=== PATIENT | male | born 1975 | race Caucasian/White ===

== ENCOUNTER 2021-11-11 11:40 | Inpatient (IN) | payer BC ==
[2021-11-11] MEDS ORDERED: MAGNESIUM HYDROX 2400MG/30ML ORAL SUSPENSION 30 ML CUP PO PRN (12:04)
[2021-11-11] MEDS ORDERED: LOPERAMIDE HCL 2 MG CAPSULE PO PRN (12:04)
[2021-11-11] MEDS ORDERED: ONDANSETRON *ODT* 4 MG TABLET SL PRN (12:04)
[2021-11-11] MEDS ORDERED: ACETAMINOPHEN 325 MG TABLET (FP) PO PRN (12:04)
[2021-11-11] MEDS ORDERED: NICOTINE 10 MG CARTRIDGE (INHALER) IH PRN (12:04)
[2021-11-11] MEDS ORDERED: DICYCLOMINE HCL 10 MG CAPSULE PO PRN (12:04)
[2021-11-11] MEDS ORDERED: MAGNESIUM CITRATE 300 ML BOTTLE PO PRN (12:04)
[2021-11-11] MEDS ORDERED: MENTHOL/PHENOL 1 EACH UD MM PRN (12:04)
[2021-11-11] MEDS ORDERED: BISMUTH SUBSALICYLATE 524 MG/30 ML PO PRN (12:04)
[2021-11-11 13:19] VITALS: BMI 18.8
[2021-11-11] MEDS: PRENATAL VITAMINS W/ FOLIC ACID TABLET (FP) PO SCH (14:11)
[2021-11-11] MEDS: hydrOXYzine PAMOATE 25 MG CAPSULE (FP) PO SCH ×3 (14:11→22:26)
[2021-11-11 15:18] LABS: HEMATOCRIT 35.7 % (35.4-49); HEMOGLOBIN 12.2 GM/dL (11.7-16.9); MCH 27.5 pg (25.7-33.7); MCHC 34.1 g/dl (32.0-35.9); MEAN CELL VOLUME 80.5 fl (80-96); MEAN PLT VOLUME 7.3 fl (7.5-11.1); PLATELET COUNT 263 10^3/uL (134-434); RBC 4.43 M/mm3 (4.00-5.60); RDW 15.3 % (11.9-15.9); WHITE BLOOD COUNT 6.1 K/mm3 (4.0-10.0)
[2021-11-11 15:28] LABS: CALCIUM 8.9 mg/dL (8.5-10.1)
[2021-11-11 15:29] LABS: ALBUMIN 3.4 g/dl (3.4-5.0); BLOOD UREA NITROGEN 21.6 mg/dL (7-18)
[2021-11-11 15:32] LABS: CREATININE 0.8 mg/dL (0.55-1.3)
[2021-11-11 15:33] LABS: BILIRUBIN,TOTAL 0.6 mg/dL (0.2-1)
[2021-11-11 15:34] LABS: TOT PROT 7.8 g/dl (6.4-8.2)
[2021-11-11] MEDS ORDERED: MELATONIN 5 MG TABLETS PO SCH (22:00)
[2021-11-11] MEDS: THIAMINE HCL 100 MG TABLET (FP) PO SCH (22:26)
[2021-11-12] MEDS: hydrOXYzine PAMOATE 25 MG CAPSULE (FP) PO SCH ×5 (06:04→22:28)
[2021-11-12] MEDS: METHOCARBAMOL 500 MG TABLET PO PRN (07:23)
[2021-11-12] MEDS ORDERED: methaDONE HCL 40 MG DISPERSABLE TABLET ONE (09:19)
[2021-11-12] MEDS ORDERED: methaDONE HCL 10 MG TABLET ONE (09:19)
[2021-11-12] MEDS ORDERED: diazePAM 5 MG TABLET PO PRN (09:41)
[2021-11-12] MEDS ORDERED: methaDONE HCL 10 MG TABLET PO ONE (10:00)
[2021-11-12] MEDS: PRENATAL VITAMINS W/ FOLIC ACID TABLET (FP) PO SCH (10:46)
[2021-11-12] MEDS: diazePAM 5 MG TABLET PO SCH ×3 (10:47→22:27)
[2021-11-12] MEDS: MAG HYDROX/AL HYDROX/SIMETH 30 ML UNIT-DOSE CUP PO PRN (10:48)
[2021-11-12] MEDS: ACETAMINOPHEN 325 MG TABLET (FP) PO PRN (10:48)
[2021-11-12] MEDS: THIAMINE HCL 100 MG TABLET (FP) PO SCH (22:27)
[2021-11-13] MEDS ORDERED: methaDONE HCL 40 MG DISPERSABLE TABLET ONE (04:16)
[2021-11-13] MEDS ORDERED: methaDONE HCL 10 MG TABLET ONE (04:16)
[2021-11-13] MEDS: diazePAM 5 MG TABLET PO SCH ×4 (05:02→22:45)
[2021-11-13] MEDS: hydrOXYzine PAMOATE 25 MG CAPSULE (FP) PO SCH ×5 (05:02→22:44)
[2021-11-13] MEDS: ACETAMINOPHEN 325 MG TABLET (FP) PO PRN ×2 (05:06→22:46)
[2021-11-13] MEDS ORDERED: methaDONE HCL 10 MG TABLET PO SCH (06:00)
[2021-11-13] MEDS: METHOCARBAMOL 500 MG TABLET PO PRN ×2 (08:37→22:44)
[2021-11-13] MEDS: PRENATAL VITAMINS W/ FOLIC ACID TABLET (FP) PO SCH (10:20)
[2021-11-13] MEDS: MAG HYDROX/AL HYDROX/SIMETH 30 ML UNIT-DOSE CUP PO PRN (10:24)
[2021-11-13] MEDS: THIAMINE HCL 100 MG TABLET (FP) PO SCH (22:44)
[2021-11-13] MEDS: SUVOREXANT 10 MG TABLET PO PRN (22:48)
[2021-11-14 00:07] LABS: SARS-CoV-2 NAA Not Detected (Not Detected)
[2021-11-14] MEDS ORDERED: methaDONE HCL 40 MG DISPERSABLE TABLET ONE (04:16)
[2021-11-14] MEDS ORDERED: methaDONE HCL 10 MG TABLET ONE (04:16)
[2021-11-14] MEDS: diazePAM 5 MG TABLET PO SCH ×3 (05:06→22:06)
[2021-11-14] MEDS: IBUPROFEN 400 MG TABLET (FP) PO PRN ×2 (05:08→22:09)
[2021-11-14] MEDS: METHOCARBAMOL 500 MG TABLET PO PRN ×3 (05:08→18:05)
[2021-11-14] MEDS: hydrOXYzine PAMOATE 25 MG CAPSULE (FP) PO SCH ×5 (05:09→22:06)
[2021-11-14] MEDS: PRENATAL VITAMINS W/ FOLIC ACID TABLET (FP) PO SCH (10:10)
[2021-11-14] MEDS: ACETAMINOPHEN 325 MG TABLET (FP) PO PRN (10:21)
[2021-11-14] MEDS: MAG HYDROX/AL HYDROX/SIMETH 30 ML UNIT-DOSE CUP PO PRN (18:06)
[2021-11-14] MEDS: THIAMINE HCL 100 MG TABLET (FP) PO SCH (22:06)
[2021-11-14] MEDS: SUVOREXANT 10 MG TABLET PO PRN (22:08)
[2021-11-15] MEDS ORDERED: methaDONE HCL 10 MG TABLET ONE (04:38)
[2021-11-15] MEDS ORDERED: methaDONE HCL 40 MG DISPERSABLE TABLET ONE (04:39)
[2021-11-15] MEDS: hydrOXYzine PAMOATE 25 MG CAPSULE (FP) PO SCH ×5 (05:16→22:15)
[2021-11-15] MEDS: diazePAM 5 MG TABLET PO SCH ×2 (05:16→17:47)
[2021-11-15] MEDS: METHOCARBAMOL 500 MG TABLET PO PRN ×2 (05:17→17:49)
[2021-11-15] MEDS: PRENATAL VITAMINS W/ FOLIC ACID TABLET (FP) PO SCH (10:09)
[2021-11-15] MEDS: ACETAMINOPHEN 325 MG TABLET (FP) PO PRN (10:10)
[2021-11-15] MEDS: MAG HYDROX/AL HYDROX/SIMETH 30 ML UNIT-DOSE CUP PO PRN (14:00)
[2021-11-15] MEDS: SUVOREXANT 10 MG TABLET PO PRN (21:55)
[2021-11-15] MEDS: THIAMINE HCL 100 MG TABLET (FP) PO SCH (22:15)
[2021-11-16] MEDS ORDERED: methaDONE HCL 10 MG TABLET ONE (04:58)
[2021-11-16] MEDS ORDERED: methaDONE HCL 40 MG DISPERSABLE TABLET ONE (04:58)
[2021-11-16] MEDS: hydrOXYzine PAMOATE 25 MG CAPSULE (FP) PO SCH (05:19)
[2021-11-16] MEDS ORDERED: diazePAM 5 MG TABLET PO ONE (06:00)
[2021-11-16 09:18] VITALS: BP 100/63; PULSE 97; TEMP 98.3
== END 2021-11-16 09:08 | disposition home or self-care (01) | DRG 773 ==
LOC: YASAS 11:40 → Y6N 13:36
PROVIDERS: ADMIT Allergy & Immunology; ATTEND Allergy & Immunology
PROC: HZ2ZZZZ Detoxification Services for Substance Abuse Treatment (ICD-10-PCS; principal; 2021-11-11)
DX: F10.230 Alcohol dependence with withdrawal, uncomplicated (principal); F11.20 Opioid dependence, uncomplicated; F14.20 Cocaine dependence, uncomplicated; F12.20 Cannabis dependence, uncomplicated; F17.210 Nicotine dependence, cigarettes, uncomplicated; F19.282 Other psychoactive substance dependence with psychoactive substance-induced sleep disorder; F19.24 Other psychoactive substance dependence with psychoactive substance-induced mood disorder; F41.9 Anxiety disorder, unspecified; J45.909 Unspecified asthma, uncomplicated
CPT/HCPCS: 36415; 80053; 82962; 84520; 85027; 86780; C9803-CS; U0003; U0005

== ENCOUNTER 2024-01-30 12:29 | Inpatient (IN) | payer BC ==
[2024-01-30 14:06] VITALS: BMI 18.2
[2024-01-30] MEDS ORDERED: NALOXONE (NARCAN) HCL 4 MG/0.1 ML SPRAY NS PRN (14:31)
[2024-01-30] MEDS ORDERED: BENZONATATE 200 MG CAPSULE PO PRN (14:31)
[2024-01-30] MEDS ORDERED: guaiFENesin 600 MG TABLET.ER (FP) PO PRN (14:31)
[2024-01-30] MEDS ORDERED: NALOXONE HCL 0.4 MG/ML VIAL IM PRN (14:31)
[2024-01-30] MEDS ORDERED: MAGNESIUM HYDROX 2400MG/30ML ORAL SUSPENSION 30 ML CUP PO PRN (14:31)
[2024-01-30] MEDS ORDERED: ACETAMINOPHEN 325 MG TABLET (FP) PO PRN (14:31)
[2024-01-30] MEDS ORDERED: P-EPHED 60MG/TRIPROLIDI 2.5MG TABLET PO PRN (14:31)
[2024-01-30] MEDS ORDERED: BENZOCAINE/MENTHOL (CHLORASEPTIC ) LOZENGE MM PRN (14:31)
[2024-01-30] MEDS ORDERED: DOCUSATE SODIUM 100 MG CAPSULE (FP) PO PRN (14:31)
[2024-01-30] MEDS ORDERED: NICOTINE POLACRILEX 2 MG LOZENGE BC PRN (14:31)
[2024-01-30] MEDS ORDERED: POLYETHYLENE GLYCOL (HEALTHYLAX) 3350 17 GM PACKET PO PRN (14:31)
[2024-01-30] MEDS ORDERED: LOPERAMIDE HCL 2 MG CAPSULE PO PRN (14:31)
[2024-01-30] MEDS ORDERED: BISACODYL 5 MG TABLET.DR (FP) PO PRN (14:31)
[2024-01-30] MEDS: hydrOXYzine PAMOATE 25 MG CAPSULE (FP) PO ONE (18:21)
[2024-01-30] MEDS: MELATONIN 5 MG TABLETS PO SCH (21:37)
[2024-01-30] MEDS: THIAMINE 100 MG TABLET PO SCH (21:37)
[2024-01-31] MEDS: methaDONE HCL 10 MG TABLET PO SCH (07:37)
[2024-01-31] MEDS: PRENATAL VITAMINS W/ FOLIC ACID TABLET (FP) PO SCH (10:25)
[2024-01-31 11:58] LABS: POTASSIUM 3.8 mmol/L (3.5-5.1)
[2024-01-31 12:01] LABS: CALCIUM 9.4 mg/dL (8.5-10.1)
[2024-01-31 12:02] LABS: BLOOD UREA NITROGEN 30.6 mg/dL (7-18)
[2024-01-31 12:05] LABS: CREATININE 0.9 mg/dL (0.55-1.3)
[2024-01-31 12:06] LABS: TOT PROT 8.7 g/dl (6.4-8.2)
[2024-01-31 12:07] LABS: BILIRUBIN,TOTAL 0.5 mg/dL (0.2-1)
[2024-01-31 12:19] LABS: HEMATOCRIT 36.8 % (35.4-49); HEMOGLOBIN 12.3 GM/dL (11.7-16.9); MCH 26.8 pg (25.7-33.7); MCHC 33.5 g/dl (32.0-35.9); MEAN CELL VOLUME 80.2 fl (80-96); MEAN PLT VOLUME 8.6 fl (7.5-11.1); PLATELET COUNT 254 10^3/uL (134-434); RBC 4.59 M/mm3 (4.00-5.60); RDW 16.2 % (11.9-15.9); WHITE BLOOD COUNT 7.7 K/mm3 (4.0-10.0)
[2024-01-31] MEDS: metFORMIN HCL 500 MG TABLET (FP) PO SCH (16:32)
[2024-01-31] MEDS: INSULIN ASPART SLIDING SCALE (NOVOLOG) 1 VIAL SQ SCH (16:33)
[2024-01-31] MEDS: hydrOXYzine PAMOATE 25 MG CAPSULE (FP) PO PRN (17:01)
[2024-01-31] MEDS: QUEtiapine FUMARATE 100 MG TABLET (FP) PO SCH (21:11)
[2024-01-31] MEDS: OLANZapine 2.5 MG TABLET PO SCH (21:11)
[2024-01-31 22:19] LABS: SYPHILIS W/ RPR CONF NON-REACTIVE (NONREACTIVE)
[2024-02-01] MEDS: ESCITALOPRAM OXALATE 10 MG TABLET PO SCH (09:48)
[2024-02-01] MEDS: LISINOPRIL 20 MG TABLET PO SCH (09:48)
[2024-02-01] MEDS: MAG HYDROX/AL HYDROX/SIMETH 30 ML UNIT-DOSE CUP PO PRN (09:49)
[2024-02-02] MEDS: IBUPROFEN 600 MG TABLET (FP) PO PRN (10:06)
[2024-02-02 14:41] LABS: URINE APPEARANCE CLEAR; URINE BILIRUBIN NEGATIVE (NEGATIVE); URINE COLOR YELLOW; URINE GLUCOSE (UA) NEGATIVE (NEGATIVE); URINE KETONE NEGATIVE (NEGATIVE); URINE LEUK ESTERASE NEGATIVE (NEGATIVE); URINE NITRITE NEGATIVE (NEGATIVE); URINE PROTEIN NEGATIVE (NEGATIVE)
[2024-02-02] MEDS: NICOTINE POLACRILEX 2 MG GUM BUC PRN (21:15)
[2024-02-03] MEDS: IBUPROFEN 400 MG TABLET (FP) PO PRN (09:54)
[2024-02-11] MEDS ORDERED: INSULIN ASPART SLIDING SCALE (NOVOLOG) 1 VIAL SQ ONE (16:28)
[2024-02-25] MEDS ORDERED: QUEtiapine FUMARATE 50 MG TABLET ONE (21:19)
[2024-02-26] MEDS ORDERED: QUEtiapine FUMARATE 50 MG TABLET ONE (20:00)
[2024-02-28 06:53] VITALS: TEMP 982
[2024-02-28 09:12] VITALS: BP 114/72; PULSE 100; RESP 18
== END 2024-02-28 10:12 | disposition home or self-care (01) | DRG 772 ==
LOC: YASAS 12:29 → Y3NR 15:47 → Y3W 01-31 12:27
PROVIDERS: ADMIT Allergy & Immunology; ATTEND Psychiatry & Neurology Pain Medicine
PROC: HZ42ZZZ Group Counseling for Substance Abuse Treatment, Cognitive-Behavioral (ICD-10-PCS; principal; 2024-01-30)
DX: F14.20 Cocaine dependence, uncomplicated (principal); F11.20 Opioid dependence, uncomplicated; F12.20 Cannabis dependence, uncomplicated; F17.210 Nicotine dependence, cigarettes, uncomplicated; F19.282 Other psychoactive substance dependence with psychoactive substance-induced sleep disorder; F19.24 Other psychoactive substance dependence with psychoactive substance-induced mood disorder; F39 Unspecified mood [affective] disorder; F32.A Depression, unspecified; F41.9 Anxiety disorder, unspecified; Z59.02 Unsheltered homelessness
CPT/HCPCS: 36415; 80053; 80307; 81003; 82962; 83036; 85027; 86780; 86803; 87522; 93005; 93010

== ENCOUNTER 2024-04-23 17:56 | Inpatient (IN) | payer BC ==
[2024-04-23 19:10] VITALS: BMI 19.3
[2024-04-23] MEDS ORDERED: guaiFENesin 600 MG TABLET.ER (FP) PO PRN (20:47)
[2024-04-23] MEDS ORDERED: MAGNESIUM HYDROX 2400MG/30ML ORAL SUSPENSION 30 ML CUP PO PRN (20:47)
[2024-04-23] MEDS ORDERED: NALOXONE HCL 0.4 MG/ML VIAL IM PRN (20:47)
[2024-04-23] MEDS ORDERED: MAG HYDROX/AL HYDROX/SIMETH 30 ML UNIT-DOSE CUP PO PRN (20:47)
[2024-04-23] MEDS ORDERED: IBUPROFEN 400 MG TABLET (FP) PO PRN (20:47)
[2024-04-23] MEDS ORDERED: NALOXONE (NARCAN) HCL 4 MG/0.1 ML SPRAY NS PRN (20:47)
[2024-04-23] MEDS ORDERED: NICOTINE POLACRILEX 2 MG GUM BUC PRN (20:47)
[2024-04-23] MEDS ORDERED: ACETAMINOPHEN 325 MG TABLET (FP) PO PRN (20:47)
[2024-04-23] MEDS ORDERED: LOPERAMIDE HCL 2 MG CAPSULE PO PRN (20:47)
[2024-04-23] MEDS ORDERED: BENZONATATE 200 MG CAPSULE PO PRN (20:47)
[2024-04-23] MEDS ORDERED: POLYETHYLENE GLYCOL (HEALTHYLAX) 3350 17 GM PACKET PO PRN (20:47)
[2024-04-23] MEDS ORDERED: BENZOCAINE/MENTHOL (CHLORASEPTIC ) LOZENGE MM PRN (20:47)
[2024-04-23] MEDS: MELATONIN 5 MG TABLETS PO SCH (21:36)
[2024-04-23] MEDS: THIAMINE 100 MG TABLET PO SCH (21:36)
[2024-04-24 02:47] LABS: URINE APPEARANCE CLEAR; URINE BILIRUBIN NEGATIVE (NEGATIVE); URINE COLOR YELLOW; URINE GLUCOSE (UA) NEGATIVE (NEGATIVE); URINE KETONE NEGATIVE (NEGATIVE); URINE LEUK ESTERASE NEGATIVE (NEGATIVE); URINE NITRITE NEGATIVE (NEGATIVE); URINE PROTEIN NEGATIVE (NEGATIVE)
[2024-04-24] MEDS ORDERED: methaDONE HCL 10 MG TABLET PO SCH (09:00)
[2024-04-24] MEDS: PRENATAL VITAMINS W/ FOLIC ACID TABLET (FP) PO SCH (10:15)
[2024-04-24] MEDS: NICOTINE 14 MG/24 HOURS TOPICAL PATCH TD SCH (10:15)
[2024-04-24] MEDS: hydrOXYzine PAMOATE 25 MG CAPSULE (FP) PO PRN (10:16)
[2024-04-24 14:28] LABS: HEMOGLOBIN 12.3 GM/dL (11.7-16.9); MCH 26.3 pg (25.7-33.7); MCHC 32.4 g/dl (32.0-35.9); MEAN CELL VOLUME 81.1 fl (80-96); MEAN PLT VOLUME 8.4 fl (7.5-11.1); PLATELET COUNT 242 10^3/uL (134-434); RBC 4.68 M/mm3 (4.00-5.60); RDW 15.5 % (11.9-15.9); WHITE BLOOD COUNT 4.5 K/mm3 (4.0-10.0)
[2024-04-24 15:16] LABS: CHLORIDE 96 mmol/L (98-107); POTASSIUM 4.7 mmol/L (3.5-5.1); SODIUM 135 mmol/L (136-145)
[2024-04-24 15:18] LABS: ALBUMIN 4.1 g/dl (3.4-5.0); ANION GAP 7 mmol/L (4-13); BLOOD UREA NITROGEN 13.1 mg/dL (7-18); CALCIUM 9.8 mg/dL (8.5-10.1); CO2 31 mmol/L (21-32); GLUCOSE,RANDOM 134 mg/dL (74-106)
[2024-04-24 15:21] LABS: CREATININE 0.8 mg/dL (0.55-1.3); SGOT/AST 34 U/L (15-37); SGPT/ALT 33 U/L (13-61)
[2024-04-24 15:23] LABS: BILIRUBIN,TOTAL 0.4 mg/dL (0.2-1); TOT PROT 8.5 g/dl (6.4-8.2)
[2024-04-24 15:24] LABS: ALK PHOS 107 U/L (45-117)
[2024-04-24] MEDS: QUEtiapine FUMARATE 100 MG TABLET (FP) PO SCH (21:43)
[2024-04-24] MEDS: OLANZapine 2.5 MG TABLET PO SCH (21:44)
[2024-04-25] MEDS: ESCITALOPRAM OXALATE 10 MG TABLET PO SCH (09:41)
[2024-04-26] MEDS: IBUPROFEN 600 MG TABLET (FP) PO PRN (10:17)
[2024-04-27] MEDS: LISINOPRIL 20 MG TABLET PO SCH (16:50)
[2024-05-03 06:18] VITALS: RESP 18
[2024-05-06 06:00] VITALS: TEMP 98
[2024-05-06 09:16] VITALS: BP 110/72; PULSE 89
== END 2024-05-06 11:23 | disposition home or self-care (01) | DRG 772 ==
LOC: YASAS 17:56 → Y3W 21:05
PROVIDERS: ADMIT Allergy & Immunology; ATTEND Psychiatry & Neurology Pain Medicine
PROC: HZ42ZZZ Group Counseling for Substance Abuse Treatment, Cognitive-Behavioral (ICD-10-PCS; principal; 2024-04-23)
DX: F10.20 Alcohol dependence, uncomplicated (principal); F11.20 Opioid dependence, uncomplicated; F14.20 Cocaine dependence, uncomplicated; F17.210 Nicotine dependence, cigarettes, uncomplicated; F19.282 Other psychoactive substance dependence with psychoactive substance-induced sleep disorder; F19.24 Other psychoactive substance dependence with psychoactive substance-induced mood disorder; F31.9 Bipolar disorder, unspecified; F41.9 Anxiety disorder, unspecified; I10 Essential (primary) hypertension; E11.9 Type 2 diabetes mellitus without complications; Z79.84 Long term (current) use of oral hypoglycemic drugs; B18.2 Chronic viral hepatitis C
CPT/HCPCS: 36415; 80053; 80305; 80307; 81003; 82962; 85027; 86780; 87811; 93005; 93010

== ENCOUNTER 2024-12-20 17:16 | Inpatient (IN) | payer BC ==
[2024-12-20 17:49] VITALS: BMI 19.2
[2024-12-20] MEDS ORDERED: P-EPHED 60MG/TRIPROLIDI 2.5MG TABLET PO PRN (21:26)
[2024-12-20] MEDS ORDERED: BENZOCAINE/MENTHOL (CHLORASEPTIC ) LOZENGE MM PRN (21:26)
[2024-12-20] MEDS ORDERED: NALOXONE (NARCAN) HCL 4 MG/0.1 ML SPRAY NS PRN (21:26)
[2024-12-20] MEDS ORDERED: IBUPROFEN 400 MG TABLET (FP) PO PRN (21:26)
[2024-12-20] MEDS ORDERED: POLYETHYLENE GLYCOL (HEALTHYLAX) 3350 17 GM PACKET PO PRN (21:26)
[2024-12-20] MEDS ORDERED: LOPERAMIDE HCL 2 MG CAPSULE PO PRN (21:26)
[2024-12-20] MEDS ORDERED: BENZONATATE 200 MG CAPSULE PO PRN (21:26)
[2024-12-20] MEDS ORDERED: ACETAMINOPHEN 325 MG TABLET (FP) PO PRN (21:26)
[2024-12-20] MEDS ORDERED: MAGNESIUM HYDROX 2400MG/30ML ORAL SUSPENSION 30 ML CUP PO PRN (21:26)
[2024-12-20] MEDS ORDERED: guaiFENesin 600 MG TABLET.ER (FP) PO PRN (21:26)
[2024-12-20] MEDS ORDERED: MAG HYDROX/AL HYDROX/SIMETH 30 ML UNIT-DOSE CUP PO PRN (21:26)
[2024-12-20] MEDS: MELATONIN 5 MG TABLETS PO SCH (23:50)
[2024-12-20] MEDS: THIAMINE 100 MG TABLET PO SCH (23:50)
[2024-12-21] MEDS: methaDONE HCL 10 MG TABLET PO ONE (07:44)
[2024-12-21] MEDS: PRENATAL VITAMINS W/ FOLIC ACID TABLET (FP) PO SCH (10:00)
[2024-12-21 11:40] LABS: CHLORIDE 100 mmol/L (98-107); POTASSIUM 4.2 mmol/L (3.5-5.1); SODIUM 138 mmol/L (136-145)
[2024-12-21 11:43] LABS: PH,URINE >= 9.0 (5.0-8.0); URINE APPEARANCE TURBID; URINE BILIRUBIN NEGATIVE (NEGATIVE); URINE COLOR YELLOW; URINE GLUCOSE (UA) NEGATIVE (NEGATIVE); URINE KETONE NEGATIVE (NEGATIVE); URINE LEUK ESTERASE NEGATIVE (NEGATIVE); URINE NITRITE NEGATIVE (NEGATIVE); URINE PROTEIN NEGATIVE (NEGATIVE); URINE UROBILINOGEN 0.2 mg/dL (0.2-1.0)
[2024-12-21 11:50] LABS: ALBUMIN 3.5 g/dl (3.4-5.0); ANION GAP 8 mmol/L (4-13); BLOOD UREA NITROGEN 13.6 mg/dL (7-18); CO2 30 mmol/L (21-32); CREATININE 0.6 mg/dL (0.55-1.3); GLUCOSE,RANDOM 92 mg/dL (74-106)
[2024-12-21 11:51] LABS: CALCIUM 9.4 mg/dL (8.5-10.1)
[2024-12-21 11:52] LABS: HEMATOCRIT 41.6 % (40.1-51.0); MCHC 31.3 g/dl (32.3-36.5); MEAN CELL VOLUME 85.2 fl (79.0-92.2); MEAN PLT VOLUME 10.1 fl (9.4-12.4); PLATELET COUNT 247 x10^3/uL (163-337); RDW 14.7 % (12.1-15.9)
[2024-12-21 11:53] LABS: SGPT/ALT 29 U/L (13-61)
[2024-12-21 11:54] LABS: SGOT/AST 31 U/L (15-37)
[2024-12-21 11:55] LABS: BILIRUBIN,TOTAL 0.5 mg/dL (0.2-1); TOT PROT 7.8 g/dl (6.4-8.2)
[2024-12-21 11:56] LABS: ALK PHOS 79 U/L (45-117)
[2024-12-21] MEDS: LISINOPRIL 20 MG TABLET PO SCH (15:02)
[2024-12-21] MEDS: INSULIN ASPART SLIDING SCALE (NOVOLOG) 1 VIAL SQ SCH (16:56)
[2024-12-21] MEDS: hydrOXYzine PAMOATE 25 MG CAPSULE (FP) PO ONE (22:16)
[2024-12-22] MEDS ORDERED: methaDONE HCL 10 MG TABLET PO SCH (06:00)
[2024-12-23] MEDS: IBUPROFEN 600 MG TABLET (FP) PO PRN (03:35)
[2024-12-25] MEDS ORDERED: INSULIN (NOVOLOG) ASPART 100 UNITS/ML 10ML VIAL ONE (16:37)
[2024-12-26] MEDS: metFORMIN HCL 500 MG TABLET (FP) PO SCH (17:05)
[2024-12-26] MEDS: GABAPENTIN 100 MG CAPSULE PO SCH (21:57)
[2024-12-26] MEDS: QUEtiapine FUMARATE 100 MG TABLET (FP) PO SCH (21:57)
[2024-12-27] MEDS: ESCITALOPRAM OXALATE 10 MG TABLET PO SCH (09:42)
[2024-12-27] MEDS: OLANZapine 2.5 MG TABLET PO SCH (09:42)
[2025-01-05] MEDS ORDERED: methaDONE HCL 10 MG TABLET PO SCH (06:00)
[2025-01-10 09:13] VITALS: BP 124/76; PULSE 99; RESP 17; TEMP 97.7
== END 2025-01-10 09:12 | disposition home or self-care (01) | DRG 772 ==
LOC: YASAS 17:16 → Y5N 22:49 → Y3E 12-24 14:40
PROVIDERS: ADMIT Allergy & Immunology; ATTEND Psychiatry & Neurology Pain Medicine
PROC: HZ42ZZZ Group Counseling for Substance Abuse Treatment, Cognitive-Behavioral (ICD-10-PCS; principal; 2024-12-20)
DX: F14.20 Cocaine dependence, uncomplicated (principal); F11.20 Opioid dependence, uncomplicated; F12.10 Cannabis abuse, uncomplicated; F17.210 Nicotine dependence, cigarettes, uncomplicated; F31.9 Bipolar disorder, unspecified; F19.282 Other psychoactive substance dependence with psychoactive substance-induced sleep disorder; F19.24 Other psychoactive substance dependence with psychoactive substance-induced mood disorder; F39 Unspecified mood [affective] disorder; F41.9 Anxiety disorder, unspecified; I10 Essential (primary) hypertension; E11.9 Type 2 diabetes mellitus without complications; Z79.84 Long term (current) use of oral hypoglycemic drugs
CPT/HCPCS: 36415; 80053; 80305; 80307; 81003; 82962; 85027; 86780; 87811; 93005; 93010